=== PATIENT | male | born 1975 | race Caucasian/White ===

== ENCOUNTER 2018-08-25 17:59 | Emergency (ER) | payer OTHER, MEDICAID, SELFPAY ==
[2018-08-25 18:12] VITALS: BP 170/96; PULSE 101; RESP 22; TEMP 36.8; O2SAT 100; BMI 25.7
--- NOTE | 2018-08-25 18:29 | DI.CT.S_ITS ---
PROCEDURE: CT HEAD/BRAIN WO CON INDICATIONS: Black outs and nerves twitching over the course of several weeks most recently today TECHNIQUE: Noncontrast 4.5 mm thick angled axial sections acquired from the foramen magnum to the vertex, with coronal and sagittal reformats. For radiation dose reduction, the following was used: automated exposure control, adjustment of mA and/or kV according to patient size. COMPARISON: None. FINDINGS: Image quality: Excellent. CSF spaces: Basal cisterns are patent. No extra-axial fluid collections. Ventricles are normal in size and shape. Brain: No midline shift. No intracranial masses or hemorrhage. Pfeiffer-white matter interface is normal. Skull and face: Calvarium and visualized facial bones are intact, without suspicious lesions. Sinuses: Visualized sinuses and mastoids are clear. IMPRESSION: No acute intracranial abnormality. Dictated by: Oliva Lee M.D. on 08/25/2018 at 19:07 Approved by: Oliva Lee M.D. on 08/25/2018 at 19:07
[2018-08-25] MEDS: SODIUM CHLORIDE 0.9% 1,000 ML 1000 ML IV (20:39)
[2018-08-25 20:43] LABS: Prothrombin Time 10.2 SECONDS (10.1-12.7)
[2018-08-25 20:44] VITALS: BP 163/95; PULSE 93; RESP 16; O2SAT 100
[2018-08-25 20:46] LABS: PTT Partial Thromboplastin Tim 31 SECONDS (26.4-36.2)
[2018-08-25 20:47] LABS: Urine Amphetamines Positive (Negative); Urine Cocaine Negative (Negative); Urine Methamphetamines Positive (Negative); Urine Morphine/Opi cutoff 2000 Negative (Negative); Urine Tetrahydrocannabinol Negative (Negative)
[2018-08-25 20:48] LABS: Alanine Aminotransferase 32 IU/L (21-72); Albumin 4.5 g/dL (3.5-5.0); Albumin Globulin Ratio 1.6 (1.0-2.8); Alkaline Phosphatase 50 U/L (38-126); Aspartate Aminotransferase 36 IU/L (17-59); Bilirubin Total 0.5 mg/dL (0.2-1.3); Blood Urea Nitrogen 14 mg/dL (9-20); Calcium 9.5 mg/dL (8.4-10.2); Carbon Dioxide 26 mmol/L (22-32); Chloride 104 mmol/L (98-107); Estimated Glomerular Filt Rate > 60.0 mL/min (>60); Globulin 2.9 g/dL (1.7-4.1); Glucose 87 mg/dL (70-100); HEMOLYSIS 20 (0-50); Lipase 103 U/L (23-300); Magnesium 2.2 mg/dL (1.6-2.3); Sodium 142 mmol/L (137-145); Total Protein 7.4 g/dL (6.3-8.2)
[2018-08-25 20:48] LABS: Urine Barbiturates Negative (Negative); Urine Benzodiazepines Positive (Negative); Urine MDMA Positive (Negative); Urine Methadone Negative (Negative); Urine Oxycodone Negative (Negative); Urine Phencyclidine Negative (Negative); Urine Tricyclic Antidepressant Negative (Negative)
[2018-08-25 20:53] LABS: Ethanol (ETOH) 13 mg/dL
[2018-08-25 20:58] LABS: Add Manual Diff / Slide Review NO; Basophils Percent Auto 0.9 % (0-2); Eosinophils Percent Auto 4.4 % (2-4); Hematocrit 42.8 % (41-53); Hemoglobin 14.4 g/dL (13.5-17.5); Lymphocytes Percent Auto 22.9 % (25-40); Mean Corpuscular HGB Conc 33.6 % (30-36); Mean Corpuscular Volume 95.3 fL (80-100); Neutrophils Absolute Auto 4800 /uL (3000-5900); Neutrophils Percent Auto 62.8 % (50-75); Platelet Count 254 X10^3/uL (150-400); Red Cell Distribution Width 14.4 % (11.6-14.8); White Blood Cell Count 7.7 X10^3/uL (4.5-11.0)
[2018-08-25 21:58] VITALS: BP 151/96; PULSE 95; RESP 16; O2SAT 99
[2018-08-25] MEDS: LORazepam 2 MG/ML SYRINGE 1 MG IV (22:05)
[2018-08-25] MEDS: LORazepam 0.5 MG TABLET 2 MG PO (22:07)
--- NOTE | 2018-08-26 07:31 | ED_ITS ---
HPI - Neuro Symptoms/Deficit General Chief Complaint: Neuro Symptoms/Deficit Stated Complaint: Odd involuntary twitches Time Seen by Provider: 08/25/18 20:00 Source: patient Mode of arrival: ambulatory Limitations: no limitations History of Present Illness HPI Narrative: 42-year-old former smoker with history of significant alcohol abuse presents to the emergency department for evaluation of difficulty sleeping and some hot involuntary twitches. He continues to drink though has a desire to quit. He has an appointment tomorrow with his primary care provider to discuss this among other things. He denies any focal neurologic findings. He denies any recent injuries. He states that he has quit in the past and gone to long-term rehab but that was not the most successful for him. He denies fever or chills. He denies the use of any illicit substances Onset (ago): day(s) Severity: mild Relieving factors: none Exacerbating factors: none On Anticoagulants: No Related Data Previous Rx's Medication Instructions Recorded lorazepam [Ativan] See Label Instructions .ROUTE 08/25/18 .COMPLEX PRN #19 tab Allergies Allergy/AdvReac Type Severity Reaction Status Date / Time venom-honey bee Allergy Unknown Verified 08/25/18 20:39 [BEE VENOM (HONEY BEE)] MRI CONTRAST Allergy Intermediate HIVES Uncoded 02/17/18 12:02 Review of Systems Review of Systems All systems reviewed & are unremarkable except as noted in HPI and below Constitutional Denies chills, Denies fever(s), Denies lethargy and Denies weakness Eyes Denies change in vision, Denies eye discharge, Denies irritation and Denies loss of vision ENT Ears, Nose, Mouth, and Throat: Denies change in voice, Denies neck pain and Denies sore throat Cardiovascular Denies chest pain, Denies irregular heart rhythm, Denies lightheadedness, Denies palpitations, Denies dyspnea, Denies dyspnea on exertion and Denies orthopnea Respiratory Denies cough, Denies dyspnea, Denies dyspnea on exertion and Denies wheezing Gastrointestinal Gastrointestinal: Denies abdominal pain, Denies change in bowel habits, Denies diarrhea, Denies nausea and Denies vomiting Genitourinary Denies hematuria, Denies flank pain, Denies urinary incontinence and Denies urinary urgency Musculoskeletal Denies neck pain Integumentary/Breasts Denies pruritus, Denies erythema, Denies rash and Denies wounds Neurologic Denies confusion, Denies loss of vision and Denies weakness Psychiatric Denies anxiety, Denies confusion, Denies depression, Denies homicidal ideation and Denies suicidal ideation Endocrine Denies palpitations Hematologic/Lymphatic Denies easy bruising Allergic/Immunologic Denies wheezing [facility] Social History Smoking Status: Current every day smoker Exam Narrative Exam Narrative: 42-year-old male appears a bit anxious but in no obvious significant distress Initial Vital Signs Initial Vital Signs: Vital Signs Temperature 98.2 F 08/25/18 18:12 Pulse Rate 101 H 08/25/18 18:12 Respiratory Rate 22 08/25/18 18:12 Blood Pressure 170/96 H 08/25/18 18:12 Pulse Oximetry 100 08/25/18 18:12 Const General: cooperative and well developed Nutritional Appearance: well nourished Orientation: alert, awake, oriented x3 and not confused HENMT Head: normocephalic and atraumatic Ears: external ears normal and TM's normal bilaterally Nose: external nose normal and No nasal discharge Face and sinus: sinuses nontender, face symmetric, no sinus tenderness and No dry mucous membranes Mouth: oral mucosae normal and moist mucous membranes Teeth and gingiva: dentition normal Throat: tonsils normal and uvula midline Eyes General: appearance normal, both eyes and all related structures Eyelids: eyelids normal Conjunctivae: conjunctivae normal Sclera: sclerae normal Pupils: PERRL EOM: EOM intact bilaterally Neck Neck: normal visual inspection, trachea midline, No lymphadenopathy, No midline deformity and No JVD Lymphatic: No lymphedema Chest Chest: normal inspection of the chest Resp Effort & Inspection: normal respiratory effort, able to speak in complete sentences, no respiratory distress and no use of accessory muscles Auscultation: clear to auscultation bilaterally, no rales, no rhonchi and no wheezes Cardio Rate: regular rate Rhythm: regular rhythm Heart Sounds: no click, no gallops, no murmurs and no rubs Pulses: normal peripheral pulses GI Inspection: non-distended Palpation: soft, no hepatosplenomegaly, No guarding, No pulsatile mass and No tender Auscultation: normal bowel sounds Back/Spine/Pelvis Back: No CVA tenderness Cervical Spine: cervical ROM normal and No pain with cervical ROM Thoracic/Lumbar Spine: thoracic and lumbar spine normal to inspection Skin General: no rashes or lesions noted, No jaundice and No petechiae Neuro General: alert, oriented x3, gait normal and no focal motor deficits Speech: speech normal Extrem General: full ROM, no clubbing, cyanosis or edema, no pedal edema and no calf tenderness Psych Appearance: well kempt Mental Status: mental status grossly normal Attitude: cooperative Thought Content: normal and suicidality Judgment: judgment good Course Orders Ordered: Discontinued Medications Sodium Chloride (Normal Saline 0.9%) 1,000 mls @ 1,000 mls/hr IV BOLUS ONE Stop: 08/25/18 21:34 Last Infusion: 08/25/18 21:39 Dose: 0 mls/hr Admin: 08/25/18 20:39 Dose: 1,000 mls/hr Lorazepam (Ativan) 1 mg IV NOW ONE Stop: 08/25/18 21:46 Last Admin: 08/25/18 22:05 Dose: 1 mg Lorazepam (Ativan) 2 mg PO NOW ONE Stop: 08/25/18 21:52 Last Admin: 08/25/18 22:07 Dose: 2 mg Vital Signs - 8 hr 08/25/18 18:12 08/25/18 20:44 Temperature 98.2 F Pulse Rate 101 H 93 H Respiratory Rate 22 16 Blood Pressure 170/96 H Blood Pressure [Left Arm] 163/95 H Pulse Oximetry 100 100 MDM - Neuro Symptoms/Deficit Differential Diagnosis Likely carpal tunnel syndrome, convulsions, delirium, subarachnoid hemorrhage, peripheral neuropathy, cerebrovascular accident, multiple sclerosis and transient cerebral ischemia Medical Records Attestation: I reviewed the patient's medical records. Lab Data Attestation: I reviewed the patient's lab results. Result diagrams: 08/25/18 20:27 08/25/18 20:27 Lab Results 08/25/18 08/25/18 08/25/18 Range/Units 20:27 20:27 20:27 WBC 7.7 (4.5-11.0) X10^3/uL RBC 4.50 (4.5-5.9) X10^6/uL Hgb 14.4 (13.5-17.5) g/dL Hct 42.8 (41-53) % MCV 95.3 (80-100) fL MCH 32.0 (26-34) PG MCHC 33.6 (30-36) % RDW 14.4 (11.6-14.8) % Plt Count 254 (150-400) X10^3/uL Neut % (Auto) 62.8 (50-75) % Lymph % (Auto) 22.9 L (25-40) % [place] % (Auto) 9.0 (3-14) % Eos % (Auto) 4.4 H (2-4) % Baso % (Auto) 0.9 (0-2) % Neut # (Auto) 4800 (1661-3040) /uL PT 10.2 (10.1-12.7) SECONDS INR 1.0 (0.9-1.3) APTT 31 (26.4-36.2) SECONDS Sodium 142 (137-145) mmol/L Potassium 4.0 (3.4-5.1) mmol/L Chloride 104 (98-107) mmol/L Carbon Dioxide 26 (22-32) mmol/L BUN 14 (9-20) mg/dL Creatinine 1.00 (0.66-1.25) mg/dL Estimated GFR > 60.0 (>60) mL/min BUN/Creatinine Ratio 14.0 (6-22) Glucose 87 (70-100) mg/dL Calcium 9.5 (8.4-10.2) mg/dL Magnesium 2.2 (1.6-2.3) mg/dL Total Bilirubin 0.5 (0.2-1.3) mg/dL AST 36 (17-59) IU/L ALT 32 (21-72) IU/L Alkaline Phosphatase 50 (38-126) U/L Total Protein 7.4 (6.3-8.2) g/dL Albumin 4.5 (3.5-5.0) g/dL Globulin 2.9 (1.7-4.1) g/dL Albumin/Globulin Ratio 1.6 (1.0-2.8) Lipase 103 (23-300) U/L Urine Opiates Screen (Negative) Ur Oxycodone Screen (Negative) Urine Methadone Screen (Negative) Ur Barbiturates Screen (Negative) U Tricyclic Antidepress (Negative) Ur Phencyclidine Scrn (Negative) Ur Amphetamines Screen (Negative) U Methamphetamines Scrn (Negative) Ur MDMA Scrn (Ecstasy) (Negative) U Benzodiazepines Scrn (Negative) Urine Cocaine Screen (Negative) U Marijuana (THC) Screen (Negative) Ethyl Alcohol mg/dL 08/25/18 08/25/18 Range/Units 20:27 20:39 WBC (4.5-11.0) X10^3/uL RBC (4.5-5.9) X10^6/uL Hgb (13.5-17.5) g/dL Hct (41-53) % MCV (80-100) fL MCH (26-34) PG MCHC (30-36) % RDW (11.6-14.8) % Plt Count (150-400) X10^3/uL Neut % (Auto) (50-75) % Lymph % (Auto) (25-40) % [place] % (Auto) (3-14) % Eos % (Auto) (2-4) % Baso % (Auto) (0-2) % Neut # (Auto) (5874-7280) /uL PT (10.1-12.7) SECONDS INR (0.9-1.3) APTT (26.4-36.2) SECONDS Sodium (137-145) mmol/L Potassium (3.4-5.1) mmol/L Chloride (98-107) mmol/L Carbon Dioxide (22-32) mmol/L BUN (9-20) mg/dL Creatinine (0.66-1.25) mg/dL Estimated GFR (>60) mL/min BUN/Creatinine Ratio (6-22) Glucose (70-100) mg/dL Calcium (8.4-10.2) mg/dL Magnesium (1.6-2.3) mg/dL Total Bilirubin (0.2-1.3) mg/dL AST (17-59) IU/L ALT (21-72) IU/L Alkaline Phosphatase (38-126) U/L Total Protein (6.3-8.2) g/dL Albumin (3.5-5.0) g/dL Globulin (1.7-4.1) g/dL Albumin/Globulin Ratio (1.0-2.8) Lipase (23-300) U/L Urine Opiates Screen Negative (Negative) Ur Oxycodone Screen Negative (Negative) Urine Methadone Screen Negative (Negative) Ur Barbiturates Screen Negative (Negative) U Tricyclic Antidepress Negative (Negative) Ur Phencyclidine Scrn Negative (Negative) Ur Amphetamines Screen Positive H (Negative) U Methamphetamines Scrn Positive H (Negative) Ur MDMA Scrn (Ecstasy) Positive H (Negative) U Benzodiazepines Scrn Positive H (Negative) Urine Cocaine Screen Negative (Negative) U Marijuana (THC) Screen Negative (Negative) Ethyl Alcohol 13 mg/dL Urine Dip Bedside Urine Glucose Negative Bedside Urine Bilirubin + 1 Bedside Urine Ketone +/- 5 Urine Specific [place] 1.030 Bedside Urine Occult Blood - Negative Bedside Urine pH 6.0 Bedside Urine Protein +/- 15 Bedside Urine Urobilinogen +/- 1mg Bedside Urine Nitrite - Negative Bedside Urine Leukocytes - Negative Esterase Imaging Data CT scan - head: Radiologist's impression: [address] [address] [address] Scan Report Signed Patient: Jeremy Poole#: [id number] : 1975Acct:[id number] Age/Sex: 42 / MDate of Service: 08/25/18 Loc: ED Accession Number: [id number] Procedure: CT head/brain wo con Ordering Provider: Anton Joseph D.O. PROCEDURE: CT HEAD/BRAIN WO CON INDICATIONS: Black outs and nerves twitching over the course of several weeks most recently today TECHNIQUE: Noncontrast 4.5 mm thick angled axial sections acquired from the foramen magnum to the vertex, with coronal and sagittal reformats. For radiation dose reduction, the following was used: automated exposure control, adjustment of mA and/or kV according to patient size. COMPARISON: None. FINDINGS: Image quality: Excellent. CSF spaces: Basal cisterns are patent. No extra-axial fluid collections. Ventricles are normal in size and shape. Brain: No midline shift. No intracranial masses or hemorrhage. Pfeiffer-white matter interface is normal. Skull and face: Calvarium and visualized facial bones are intact, without suspicious lesions. Sinuses: Visualized sinuses and mastoids are clear. IMPRESSION: No acute intracranial abnormality. Dictated by: Oliva Lee M.D. on 08/25/2018 at 19:07 Approved by: Oliva Lee M.D. on 08/25/2018 at 19:07 Discharge Plan Departure Patient Disposition: Home Clinical Impression: Anxiety, Alcohol withdrawal, Insomnia Discharge Date/Time: 08/25/18 22:15 Interventions: ED Discharge Assessment Last Done: 08/25/18 22:14 Instructions: DI for Drug or Alcohol Withdrawal Activity Restrictions/Additional Instructions: *You have been diagnosed with [ anxiety, alcohol withdrawal, insomnia ] *What to do: *Take medications as directed *DO NOT DRIVE *Follow up with your primary care provider tomorrow as planned. Let them know you were seen in the Emergency Department and that we ask that you be seen in follow up *Return to ER if you should have any new, worsening or concerning symptoms , such as [ ] Prescriptions: New lorazepam [Ativan] 1 mg tablet See Label Instructions .ROUTE .COMPLEX PRN (Reason: alcohol withdrawal) Qty : 19 RF: 0
== END 2018-08-25 22:15 | disposition home or self-care (01) ==
PROVIDERS: Emergency Provider Emergency Medicine
DX: F10.239 Alcohol dependence with withdrawal, unspecified (principal); F41.9 Anxiety disorder, unspecified; G47.00 Insomnia, unspecified
CPT/HCPCS: 70450; 80053; 80305; 80320; 81003; 83690; 83735; 85025; 85610; 85730; 96361; 96374; 99283; 99284; J2060

== ENCOUNTER 2023-12-17 12:06 | Emergency (ER) | payer OTHER, MEDICAID, SELFPAY ==
[2023-12-17] VITALS (7 sets, daily range): BP systolic 134–161; BP diastolic 84–100; PULSE 68–85; RESP 16–22; TEMP 36.4; O2SAT 94–97; BMI 27.0
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
[2023-12-17 13:02] LABS: Add Manual Diff / Slide Review NO; Basophils Absolute Auto 0 /uL (0-100); Basophils Percent Auto 0.5 % (0-2); Eosinophils Absolute Auto 800 /uL (0-450); Eosinophils Percent Auto 8.5 % (2-4); Hematocrit 40.1 % (41-53); Hemoglobin 13.7 g/dL (13.5-17.5); Lymphocytes Absolute Auto 1800 /uL (1100-4500); Lymphocytes Percent Auto 19.4 % (25-40); Mean Corpuscular Hemoglobin 28.6 PG (26-34); Monocytes Absolute Auto 400 /uL (0-900); Monocytes Percent Auto 4.9 % (3-14); Neutrophils Absolute Auto 6100 /uL (1500-7000); Neutrophils Percent Auto 66.7 % (50-75); Platelet Count 293 X10^3/uL (150-400); Red Blood Cell Count 4.78 X10^6/uL (4.5-5.9); Red Cell Distribution Width 15.1 % (11.6-14.8); White Blood Cell Count 9.2 X10^3/uL (4.5-11.0)
[2023-12-17 13:04] LABS: Influenza A - CEPHEID Flu A NEGATIVE (NEGATIVE); Influenza B - CEPHEID Flu B NEGATIVE (NEGATIVE); Respiratory Syncytial Virus Negative (Negative)
[2023-12-17 13:05] LABS: COVID-19 CEPHEID 4-PLEX PCR Negative (Negative)
[2023-12-17 13:38] LABS: NT-proBNP (BNP-Adult 18+) < 20 pg/mL (<125)
[2023-12-17 13:51] LABS: Alanine Aminotransferase 18 IU/L (<50); Albumin 4.2 g/dL (3.5-5.0); Albumin Globulin Ratio 1.3 (1.0-2.8); Alkaline Phosphatase 70 U/L (38-126); Aspartate Aminotransferase 24 IU/L (17-59); BUN Creatinine Ratio 13.5 (6-22); Bilirubin Total 0.6 mg/dL (0.2-1.3); Blood Urea Nitrogen 10 mg/dL (9-20); Carbon Dioxide 29 mmol/L (22-32); Chloride 103 mmol/L (98-107); Creatine Kinase 70 U/L (55-170); Estimated Glomerular Filt Rate > 60 mL/min (>60); Globulin 3.3 g/dL (1.7-4.1); Glucose 119 mg/dL (70-100); HEMOLYSIS < 15 (0-50); Potassium 3.9 mmol/L (3.4-5.1); Sodium 139 mmol/L (137-145); Total Protein 7.5 g/dL (6.3-8.2)
[2023-12-17 14:02] LABS: Troponin I < 0.012 ng/mL (0.01-0.034)
[2023-12-17] MEDS: ALBUTEROL 2.5 MG/3 ML NEB (ADULT) INH (14:03)
== END 2023-12-17 14:48 | disposition home or self-care (01) ==
PROVIDERS: Emergency Medicine; Emergency Provider Physician Assistant
DX: J70.5 Respiratory conditions due to smoke inhalation (principal); F17.210 Nicotine dependence, cigarettes, uncomplicated; R06.02 Shortness of breath; Z20.822 Contact with and (suspected) exposure to COVID-19
CPT/HCPCS: 0241U; 36415; 71046; 80053; 82550; 83880; 84484; 85025; 93005; 93010; 94640; 99284; J7613

== ENCOUNTER 2024-02-04 08:12 | Emergency (ER) | payer SELFPAY ==
[2024-02-04] VITALS (12 sets, daily range): BP systolic 113–136; BP diastolic 70–79; PULSE 68–116; RESP 16–20; TEMP 36.6; O2SAT 88–97; BMI 27.1
--- NOTE | 2024-02-04 08:19 | ED_ITS ---
HPI - SOB/Dyspnea General Chief Complaint: Shortness of Breath/Dyspnea Stated Complaint: SOB Time Seen by Provider: 02/04/24 08:13 History of Present Illness HPI Narrative: 48-year-old male with history of COPD, ongoing tobacco use presents by EMS from home for shortness of breath. Patient states that he was smoking a cigarette when he began to feel increasingly short of breath. EMS measured room oxygen saturations in the low 90s. He was placed on supplemental nasal cannula and given 2 DuoNebs EN route. On arrival patient stated he still felt somewhat short of breath but felt better after receiving the nebulizers. States that up until this morning he was feeling in his usual state of health. Related Data Previous Rx's Medication Instructions Recorded lorazepam 1 mg tablet (Ativan) See Rx Instructions .Route 08/25/18 .COMPLEX PRN alcohol withdrawal #19 tabs albuterol sulfate 90 mcg/actuation 2 puff inhalation Q4H PRN 12/17/23 aerosol inhaler shortness of breath or wheezing #8.5 grams inhalational spacing device #1 ea 12/17/23 nicotine 21 mg/24 hr daily 1 patch transdermal DAILY #28 ea 12/17/23 transdermal patch albuterol sulfate 90 mcg/actuation 2 inh inhalation Q4-6H PRN 02/04/24 breath activated powder shortness of breath #1 ea inhaler,sensor (Proair Digihaler) prednisone 20 mg tablet 40 mg (2 x 20 mg) PO DAILY #10 tabs 02/04/24 Allergies Allergy/AdvReac Type Severity Reaction Status Date / Time venom-honey bee Allergy Unknown Verified 12/17/23 12:14 [BEE VENOM (HONEY BEE)] MRI CONTRAST Allergy Intermediate HIVES Uncoded 02/17/18 12:02 Review of Systems Review of Systems Narrative: Negative except as noted above Patient History Social History Smoking Status: Current every day smoker Smoking Status: Current every day smoker alcohol intake frequency: 0-2 drinks per day Substance Use Type: does not use Exam Narrative Exam Narrative: Const: Awake, alert, uncomfortable, nontoxic Cardiac: regular rate, regular rhythm RESP: Pursed lip breathing, soft inspiratory rhonchi, no wheezing GI: Soft, nontender, nondistended, no rebound, no guarding MSK: Atraumatic, full range of motion, pulses equal Skin: Warm, Dry, intact, no rashes Neuro: AO x3, CN II-XII grossly intact, moves all extremities Initial Vital Signs Initial Vital Signs: Vital Signs Pulse Rate 81 02/04/24 08:16 Pulse Oximetry 95 02/04/24 08:16 Oxygen Delivery Method Room Air 02/04/24 08:16 Course Orders Ordered: Discontinued Medications Albuterol/Ipratropium (Albuterol/Ipratropium 3 Ml Ampul) 6 ml INH NOW ONE Stop: 02/04/24 08:19 Last Admin: 02/04/24 09:03 Dose: 6 ml Documented By: EM Dexamethasone (Dexamethasone 10 Mg/Ml Vial) 10 mg PO NOW ONE Stop: 02/04/24 08:19 Last Admin: 02/04/24 08:58 Dose: Not Given Documented By: KAYLEE Methylprednisolone (Methylprednisolone 125 Mg/2 Ml Vial) 125 mg IV NOW ONE Stop: 02/04/24 08:23 Last Admin: 02/04/24 09:04 Dose: 125 mg Documented By: KAYLEE Vital Signs Vital signs: Vital Signs - 8 hr 02/04/24 08:16 02/04/24 08:17 02/04/24 08:17 Temperature Pulse Rate 81 89 Respiratory Rate Blood Pressure 136/79 Pulse Oximetry 95 95 88 L Oxygen Delivery Method Room Air Room Air Room Air Oxygen Flow Rate Fraction of Inspired Oxygen 02/04/24 08:18 02/04/24 08:30 02/04/24 09:00 Temperature 97.9 F Pulse Rate 78 68 71 Respiratory Rate 17 Blood Pressure 136/79 Pulse Oximetry 95 92 94 Oxygen Delivery Method Room Air Nasal Cannula Nasal Cannula Oxygen Flow Rate 1.5 1.5 Fraction of Inspired Oxygen 02/04/24 09:04 02/04/24 09:30 02/04/24 10:00 Temperature Pulse Rate 72 73 81 Respiratory Rate 18 Blood Pressure Pulse Oximetry 96 95 93 Oxygen Delivery Method Nasal Cannula Nasal Cannula Room Air Oxygen Flow Rate 1.5 1.5 Fraction of Inspired Oxygen 26 02/04/24 10:09 02/04/24 10:09 02/04/24 10:09 Temperature Pulse Rate 116 H 88 Respiratory Rate 16 Blood Pressure 129/75 Pulse Oximetry 97 95 Oxygen Delivery Method Room Air Oxygen Flow Rate Fraction of Inspired Oxygen 02/04/24 10:30 02/04/24 10:30 02/04/24 11:00 Temperature Pulse Rate 76 Respiratory Rate Blood Pressure 120/70 113/70 Pulse Oximetry 93 Oxygen Delivery Method Room Air Oxygen Flow Rate Fraction of Inspired Oxygen 02/04/24 11:00 02/04/24 11:06 Temperature Pulse Rate 75 114 H Respiratory Rate 20 Blood Pressure Pulse Oximetry 92 95 Oxygen Delivery Method Room Air Oxygen Flow Rate Fraction of Inspired Oxygen MDM - SOB/Dyspnea Differential Diagnosis Differential diagnosis: Likely acute exacerbation of chronic obstructive airways disease, congestive heart failure and community acquired pneumonia Lab Data 02/04/24 08:25 02/04/24 08:25 Labs: Lab Results 02/04/24 Range/Units 08:25 WBC 6.8 (4.5-11.0) X10^3/uL RBC 4.86 (4.5-5.9) X10^6/uL Hgb 14.0 (13.5-17.5) g/dL Hct 41.7 (41-53) % MCV 85.7 (80-100) fL MCH 28.7 (26-34) PG MCHC 33.6 (30-36) % RDW 14.7 (11.6-14.8) % Plt Count 243 (150-400) X10^3/uL Neut % (Auto) 61.1 (50-75) % Lymph % (Auto) 26.5 (25-40) % [place] % (Auto) 5.7 (3-14) % Eos % (Auto) 6.3 H (2-4) % Baso % (Auto) 0.4 (0-2) % Neut # (Auto) 4100 (9164-7453) /uL Lymph # (Auto) 1800 (1003-3078) /uL [place] # (Auto) 400 (0-900) /uL Eos # (Auto) 400 (0-450) /uL Baso # (Auto) 0 (0-100) /uL Sodium 140 (137-145) mmol/L Potassium 3.5 (3.4-5.1) mmol/L Chloride 107 (98-107) mmol/L Carbon Dioxide 30 (22-32) mmol/L BUN 15 (9-20) mg/dL Creatinine 0.78 (0.66-1.25) mg/dL Estimated GFR > 60 (>60) mL/min BUN/Creatinine Ratio 19.2 (6-22) Glucose 114 H (70-100) mg/dL Calcium 9.3 (8.4-10.2) mg/dL Total Bilirubin 0.4 (0.2-1.3) mg/dL AST 25 (17-59) IU/L ALT 18 (<50) IU/L Alkaline Phosphatase 75 (38-126) U/L Total Protein 6.7 (6.3-8.2) g/dL Albumin 3.8 (3.5-5.0) g/dL Globulin 2.9 (1.7-4.1) g/dL Albumin/Globulin Ratio 1.3 (1.0-2.8) Imaging Data Chest x-ray: Radiologist's Impression: PROCEDURE: XR CHEST 1V INDICATIONS: DYSPNEA, COPD TECHNIQUE: One view of the chest was acquired. COMPARISON: [facility], CT, CT ANGIO CHEST PE, 12/17/2023, 20:46. [facility], CR, XR CHEST 2V, 12/17/2023, 12:50. FINDINGS: Surgical changes and devices: None. Lungs and pleura: Lungs are clear. No pleural effusions or pneumothorax. The question nodular opacity seen on the previous chest x-ray is consistent with a density caused by a remote healed rib fracture. Mediastinum: Mediastinal contours appear normal. Heart size is normal. Bones and chest wall: No suspicious bony lesions. Overlying soft tissues appear unremarkable. IMPRESSION: No evidence acute pulmonary process. Dictated by: Lincoln Larios M.D. on 02/04/2024 at 8:43 Approved by: Lincoln Larios M.D. on 02/04/2024 at 8:44 MDM Narrative Medical decision making narrative: Shortness of breath concerning for COPD exacerbation in patient who continues to smoke cigarettes. 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 Steroids, additional nebulizers ordered. Patient feels improved after nebulizers and steroids. Still has slight wheezing but is no longer tachypneic or hypoxic. Patient observed to ensure stable saturations. He maintained greater than 92% on room air, both at rest and with ambulation. Patient requested a refill of his inhaler because he lost his previous inhaler. In addition a course of steroids sent to pharmacy of choice. ED return precautions discussed at bedside. Patient expressed understanding of the plan and is in agreement at this time. All questions answered at the time of discharge. Discharge Plan Departure Patient Disposition: Home Clinical Impression: Chronic obstructive pulmonary disease with (acute) exacerbation Instructions: DI for Chronic Obstructive Pulmonary Disease Activity Restrictions/Additional Instructions: Use the inhaler for shortness of breath or wheezing. Tried to stop smoking as continued tobacco use as smoking will make your lung disease worse. Prescriptions: New Proair Digihaler 90 mcg/actuation aero powdr breath act w/sensor 2 inh inhalation Q4-6H PRN (Reason: shortness of breath) Qty: 1 0RF prednisone 20 mg tablet 40 mg PO DAILY Qty: 10 0RF No Action lorazepam [Ativan] 1 mg tablet See Rx Instructions .ROUTE .COMPLEX PRN (Reason: alcohol withdrawal) Qty: 19 0RF Rx Instructions: Day 1: 2mg PO q6 Day 2: 2mg PO q8 Day 3: 2mg PO q12 Day 4: 1mg PO qhs #19 nicotine 21 mg/24 hr patch 24 hour 1 patch transdermal DAILY Qty: 28 0RF albuterol sulfate 90 mcg/actuation HFA aerosol inhaler 2 puff inhalation Q4H PRN (Reason: shortness of breath or wheezing) Qty: 8.5 0RF (DME) inhalational spacing device Spacer See Rx Instructions .Route Qty: 1 0RF Rx Instructions: As directed Referrals: Miscellaneous,Doctor, MD [Primary Care Provider] - Stand Alone Forms: Patient Portal/API
[2024-02-04] MEDS: ALBUTEROL/IPRATROPIUM 3 ML AMPUL 6 ML INH (09:03)
[2024-02-04 09:04] LABS: Add Manual Diff / Slide Review NO; Basophils Absolute Auto 0 /uL (0-100); Basophils Percent Auto 0.4 % (0-2); Eosinophils Absolute Auto 400 /uL (0-450); Eosinophils Percent Auto 6.3 % (2-4); Hematocrit 41.7 % (41-53); Lymphocytes Absolute Auto 1800 /uL (1100-4500); Lymphocytes Percent Auto 26.5 % (25-40); Mean Corpuscular HGB Conc 33.6 % (30-36); Mean Corpuscular Hemoglobin 28.7 PG (26-34); Mean Corpuscular Volume 85.7 fL (80-100); Monocytes Absolute Auto 400 /uL (0-900); Monocytes Percent Auto 5.7 % (3-14); Neutrophils Absolute Auto 4100 /uL (1500-7000); Neutrophils Percent Auto 61.1 % (50-75); Platelet Count 243 X10^3/uL (150-400); Red Blood Cell Count 4.86 X10^6/uL (4.5-5.9); Red Cell Distribution Width 14.7 % (11.6-14.8); White Blood Cell Count 6.8 X10^3/uL (4.5-11.0)
[2024-02-04] MEDS: methylPREDNISolone 125 MG/2 ML VIAL IV (09:04)
[2024-02-04 09:18] LABS: Alanine Aminotransferase 18 IU/L (<50); Albumin 3.8 g/dL (3.5-5.0); Albumin Globulin Ratio 1.3 (1.0-2.8); Alkaline Phosphatase 75 U/L (38-126); Aspartate Aminotransferase 25 IU/L (17-59); BUN Creatinine Ratio 19.2 (6-22); Bilirubin Total 0.4 mg/dL (0.2-1.3); Blood Urea Nitrogen 15 mg/dL (9-20); Calcium 9.3 mg/dL (8.4-10.2); Carbon Dioxide 30 mmol/L (22-32); Chloride 107 mmol/L (98-107); Estimated Glomerular Filt Rate > 60 mL/min (>60); Globulin 2.9 g/dL (1.7-4.1); Glucose 114 mg/dL (70-100); HEMOLYSIS < 15 (0-50); Potassium 3.5 mmol/L (3.4-5.1); Sodium 140 mmol/L (137-145); Total Protein 6.7 g/dL (6.3-8.2)
== END 2024-02-04 11:28 | disposition home or self-care (01) ==
PROVIDERS: Emergency Provider Emergency Medicine
DX: J44.1 Chronic obstructive pulmonary disease with (acute) exacerbation (principal)
CPT/HCPCS: 36415; 71045; 80053; 85025; 94640; 96374; 99284; 99285; J2919